=== PATIENT | female | born 1955 | race Caucasian/White ===

== ENCOUNTER 2019-11-01 18:24 | Emergency (ER) | payer BC, SELFPAY ==
[2019-11-01 18:24] VITALS: BP 208/98; PULSE 89; RESP 16; TEMP 36.6; O2SAT 96
--- NOTE | 2019-11-01 18:34 | DI.RAD.S_ITS ---
PROCEDURE: XR TIBIA FUBULA RT 2V INDICATIONS: fall TECHNIQUE: 2 views of the tibia and fibula were acquired. COMPARISON: None. FINDINGS: Bones: There is a corticated, non-united transverse fracture off the lateral malleolus. No acute fractures are identified. Bony alignment is normal. Soft tissues: No suspicious soft tissue calcifications or masses. IMPRESSION: No acute fractures of the tibia or fibula. Dictated by: Julia Guerrier M.D. on 11/01/2019 at 19:44 Approved by: Julia Guerrier M.D. on 11/01/2019 at 19:45
--- NOTE | 2019-11-01 18:53 | ED.LOWEXIN ---
HPI - Extremity Injury (Lower) General Chief Complaint: Extremity Injury, Lower Stated Complaint: Slipped and fell Time Seen by Provider: 11/01/19 18:46 Source: EMS Mode of arrival: EMS Limitations: no limitations History of Present Illness HPI Narrative: 64-year-old female here for evaluation of right lower extremity injuries. Patient states that she was going [place] stairs on [place] where she slipped landing on her right side. She states that her right leg was twisted up underneath her. She is having pain in her tibia on the right and also her right hip. She did not ambulate into the emergency department because of the pain. Related Data Home Medications Medication Instructions Recorded Confirmed gabapentin 800 mg PO TID 11/01/19 11/01/19 lisinopril 10 mg PO DAILY 11/01/19 11/01/19 metoprolol tartrate 12.5 mg PO BID 11/01/19 11/01/19 trazodone 50 mg PO BEDTIME 11/01/19 11/01/19 Allergies Allergy/AdvReac Type Severity Reaction Status Date / Time prednisone AdvReac Severe Palpitation Verified 11/01/19 18:30 s promethazine [From Phenergan] AdvReac Severe Palpitation Verified 11/01/19 18:30 s Review of Systems Constitutional Constitutional: Denies fever(s), Denies frequent falls, Denies headache(s) and Denies weakness ENT Ears, Nose, Mouth, and Throat: Denies vertigo, Denies dizziness, Denies headache(s) and Denies disequilibrium Cardiovascular Cardiovascular: Denies chest pain Musculoskeletal Comments: Right hip and right lower leg pain Integumentary/Breasts Skin/Breast: Denies lesions and Denies rash Neurologic Neurologic: Denies behavioral changes, Denies vertigo, Denies dizziness, Denies frequent falls, Denies headache(s), Denies disequilibrium and Denies weakness Psychiatric Psychiatric: Denies behavioral changes Hematologic/Lymphatic Hematologic/Lymphatic: Denies easy bleeding and Denies easy bruising Patient History Medical History Hypertension (Acute) Social History Smoking Status: Never smoker Smoking Status: Never smoker alcohol intake frequency: 0-2 drinks per day Substance Use Type: does not use Exam Initial Vital Signs Initial Vital Signs: Vital Signs Temperature 98 F 11/01/19 18:24 Pulse Rate 89 11/01/19 18:24 Respiratory Rate 16 11/01/19 18:24 Blood Pressure 208/98 H 11/01/19 18:24 Pulse Oximetry 96 11/01/19 18:24 Const General: cooperative, comfortable and well developed Limitations: mental status not altered Cardio Pulses: dorsalis pedis present on the right Skin Lesions: no lesions Rashes: no rashes Neuro Cognition: normal cognition Sensory Exam: no sensory deficits noted Extrem Other: Tenderness to palpation with internal and external rotation of the right hip. She can flex and extend at the knee without any discomfort. Has direct tenderness to palpation over the anterior tibia the right. Right ankle and right foot unremarkable Course Orders Ordered: ED Orders 11/01/19 18:34 XR tibia fibula RT 2V Stat 11/01/19 18:53 XR hip w pel if done RT 2V Stat Discontinued Medications Hydrocodone Bitart/Acetaminophen ([place] 5/325) 1 tab PO NOW ONE Stop: 11/01/19 20:03 Last Admin: 11/01/19 20:27 Dose: 1 tab Documented by: ANUP Hydrocodone Bitart/Acetaminophen (Vicodin 5/325 Prepack) 1 bottle MISC SEEINSTR ONE Stop: 11/01/19 20:03 Last Admin: 11/01/19 20:27 Dose: 1 bottle Documented by: ANUP Vital Signs Vital signs: Vital Signs - 8 hr 11/01/19 18:24 11/01/19 20:28 Temperature 98 F Pulse Rate 89 78 Respiratory Rate 16 16 Blood Pressure 208/98 H Blood Pressure [Left Arm] 166/100 H Pulse Oximetry 96 97 MDM - Extremity Injury (Lower) Imaging Data Extremity x-ray #1: Radiologist's Impression: [address] [address] XRay Report Signed Patient: Ama FrancisMR#: [id number] : 5Acct:[id number] Age/Sex: 64 / FDate of Service: 11/01/19 Loc: ED Accession Number: [id number] Procedure: XR tibia fibula RT 2V Ordering Provider: Tomi Ross PROCEDURE: XR TIBIA FUBULA RT 2V INDICATIONS: fall TECHNIQUE: 2 views of the tibia and fibula were acquired. COMPARISON: None. FINDINGS: Bones: There is a corticated, non-united transverse fracture off the lateral malleolus. No acute fractures are identified. Bony alignment is normal. Soft tissues: No suspicious soft tissue calcifications or masses. IMPRESSION: No acute fractures of the tibia or fibula. Dictated by: Julia Guerrier M.D. on 11/01/2019 at 19:44 Approved by: Julia Guerrier M.D. on 11/01/2019 at 19:45 Extremity x-ray #2: Radiologist's Impression: [address] [address] XRay Report Signed Patient: Ama FrancisMR#: [id number] : 5Acct:[id number] Age/Sex: 64 / FDate of Service: 11/01/19 Loc: ED Accession Number: [id number] Procedure: XR hip w pel if done RT 2V Ordering Provider: Ubalod Hamilton D.O. PROCEDURE: XR HIP W PEL IF DONE RT 2V INDICATIONS: pain after fall TECHNIQUE: AP pelvis with lateral view(s) of the right hip(s). COMPARISON: None. FINDINGS: Bones: No fractures or dislocations. Pelvic ring appears intact. No suspicious bony lesions. Soft tissues: The visualized bowel gas pattern is normal. No suspicious soft tissue calcifications. IMPRESSION: No intact right hip and pelvis. Dictated by: Julia Guerrier M.D. on 11/01/2019 at 19:45 Approved by: Julia Guerrier M.D. on 11/01/2019 at 19:46 MDM Narrative Medical decision making narrative: Neurovascularly intact, x-rays negative. Suspect right lower extremity contusion. Offered crutches but the patient declined. Discussed use of anti-inflammatories. No restrictions on activities. Patient was given return precautions and follow-up instructions. She expressed understanding and agreement Discharge Plan Departure Patient Disposition: Home Clinical Impression: Acute pain of right hip, Pain in right melara Discharge Date/Time: 11/01/19 20:48 Instructions: How To Perform RICE (Rest, Ice, Compress, Elevate) Activity Restrictions/Additional Instructions: Continue all of your medications as directed. You have no restrictions on your activities other than avoiding activities that make symptoms worse. Contact your primary provider for follow-up. Return to the emergency department for any new or worsening symptoms Prescriptions: No Action trazodone 50 mg Tablet 50 mg PO BEDTIME RF: 0 gabapentin 800 mg Tablet 800 mg PO TID RF: 0 lisinopril 10 mg Tablet 10 mg PO DAILY RF: 0 metoprolol tartrate 25 mg Tablet 12.5 mg PO BID RF: 0
[2019-11-01] MEDS: HYDROCODONE/ACET 5/325 TABLET 1 TAB PO (20:27)
[2019-11-01] MEDS: HYDROCODONE/ACET 5/325 PREPACK 1 BOTTLE MISC (20:27)
[2019-11-01 20:28] VITALS: BP 166/100; PULSE 78; RESP 16; O2SAT 97
== END 2019-11-01 20:48 | disposition home or self-care (01) ==
PROVIDERS: Emergency Provider Emergency Medicine
DX: M25.551 Pain in right hip (principal); M79.661 Pain in right lower leg; W10.8XXA Fall (on) (from) other stairs and steps, initial encounter
CPT/HCPCS: 73502; 73590; 99283